=== PATIENT | female | born 1990 | race Caucasian/White ===

== ENCOUNTER 2021-05-01 05:44 | Day surgery (SDC) | payer SELFPAY ==
[2021-05-01] VITALS (20 sets, daily range): BP systolic 80–119; BP diastolic 44–82; PULSE 49–95; RESP 16–18; TEMP 36.3–36.9; O2SAT 89–100; BMI 29.8
[2021-05-01] MEDS: Lactated Ringers 1,000 ML 100 ML IV (06:41)
[2021-05-01 07:00] LABS: Internal QC Validated? YES +Cl - CLEAR BKGD; Pregnancy, Urine Negative Negative
--- NOTE | 2021-05-01 07:27 | PCM.PN.BLA ---
Progress Note see scanned in H&P and addendum
--- NOTE | 2021-05-01 07:27 | PCM.DC ---
Discharge Instructions Diet Discharge Diet: No restrictions Activity Discharge Activity: Return to Normal Activity May resume sexual activity in: 1-2 weeks (nothing in the vagina until the bleeding stops. no hot tubs, tub baths or pools until bleeding stops) Weight Bearing Status: Weight bearing as tolerated Lifting Restrictions: none Dressing / Incision Call your doctor if you observe: Fever of 101 or Higher, Numbness or Tingling, Inability to urinate, Inability to have a bowel movement, Shortness of breath, Dizziness, Swelling in the ankles, Chest pain, Increased palpitations (irregular heartbeat), Calf discomfort and Uncontrolled pain Follow Up Care Please Follow Up With: Moon Archer DO When: 1-2 weeks Test Results: Test results from this visit will be discussed in further detail at your follow-up appointment, if applicable. Discharge Plan Admission Primary Reason for Your Visit: surgery Attending Provider: Moon Archer Primary Care Provider: Zen Dumont Instructions Patient Instructions: Dilation and Curettage, Hysteroscopy Discharge Orders/Prescriptions Prescriptions: No Action multivitamin with folic acid [Thera] 1 TABLET tablet 1 tab PO BID RF: 0 sertraline 50 mg tablet 50 mg PO DAILY RF: 0 Other Ambulatory Orders: CBC-Complete Blood Cnt No Diff (Routine) Timeframe: [id number] Facility: [facility] - Location: Laboratory Ordered By: Dr. Moon Archer Referrals / Follow Up: Zen Dumont MD [Primary Care Provider] - Disposition Disposition (needs filled in before D/C Order can be placed): Home, Self Care
--- NOTE | 2021-05-01 07:30 | EMB_PTH ---
PATIENT: BETSY MORAL[place] [facility] [id number] AGE/SX: 30/F ROOM: RE05/01/[address]: Dr. Moon Archer DO : 1990 BED: DIS: 05/01/2021 SPEC #: [id number] RECD: 05/01/21 08:20 STATUS: YVONNE RERobert #: [id number] SRUTHI: 05/01/21 07:[address]: Moon Archer DEPT: SURGICAL PATHOLOGY RECD BY: Vilma Paz ENTERED: 05/01/21 08:34 SP TYPE: ENDOM BX/C ALLEY DR: Dr. Zen Dumont MD Tissues: Endometrium, NOS Procedures: Surgery Specimen Level IV HEADER OPERATION: Hysteroscopy, dilation and curettage, cervical pap smear PRE-OP DIAGNOSIS: Uterine polyp TISSUE SUBMITTED: Endometrial curettings MICROSCOPIC DIAGNOSIS Endometrium, biopsy: Polypoid fragments of proliferative endometrium with minimal disorder. AM:zahra 05/02/2021 MICROSCOPIC DESCRIPTION Slides are reviewed. GROSS DESCRIPTION Received in fixative is one container labeled with the patient's name and designated endometrial curettings. The specimen consists of multiple fragments of hemorrhagic soft tissue mixed with mucoid tissue that in aggregate measure 3 x 2.5 x 0.3 cm. The specimen is totally submitted in one cassette. / SJ:zahra 05/01/21 TC:5 CPT: 51414
[2021-05-01] MEDS: Lidocaine 1% (20 ml mdv) 20 ML Vial (07:57)
--- NOTE | 2021-05-01 08:00 | PCM.OPRPT ---
Problems Associated Problem List Diagnoses (1) DUB (dysfunctional uterine bleeding): Report of Operation Date of Procedure: 05/01/21 Pre-Operative Diagnosis: DUB, uterine polyp on pelvic US, secondary amenorrhea, PCOS, need for cervical pap smear screening Post-Operative Diagnosis: DUB, thickened endometrium, secondary amenorrhea, PCOS, need for cervical pap smear screening Surgery/Procedure Performed:: Hysteroscopy, D&C, cervical pap smear Description of Surgical Findings:: Normal appearing uterine cavity and bilateral tubal ostia visualized. Thickened endometrium. Possible flat polypoid tissue noted but difficult to assess given endometrium thickened. Normal cervical canal. Surgeon: Moon Archer viscose cellar charge hand: None Type of Anesthesia: MAC and Topical Anesth Special Medications: None Specimen's removed: Endometrial curettings Drains: None Estimated Blood Loss (mL): < 50 cc Fluids Replaced: 950 cc fluif deficit Description of Procedure: Patient was taken to the operating room where MAC anesthesia was found be adequate. She was prepped and draped in the dorsolithotomy position using yellowfin stirrups. A weighted speculum was placed in the vagina to expose the cervix. Single-tooth tenaculum was placed on the cervix. Local was injected circumferentially. The cervix was already dilated. The Symphion hysteroscope was advanced to the fundus of the uterus, the uterus was distended with normal saline. The uterine cavity was normal-appearing and bilateral tubal ostia were visualized. The endometrium was thickened. There is a possible flat polypoid lesion noted along the anterior surface of the uterus, but visualization was difficult given thickened endometrium. This possible polypoid lesion was resected using the Symphion device. The hysteroscopy was then removed. A sharp curettage was performed. Endometrial curettings were sent to pathology for review. Pictures were taken. All instruments were removed from the vagina. Bleeding was hemostatic. Vaginal sweep was performed. Instrument, needle counts were correct. Patient was taken recovery room in stable condition. Grafts/Implants Used: None Procedure Start Time: 07:42 Procedure Stop Time: 07:57 Complications None Admit VTE Documentation VTE Present on Admission: No VTE Mechan Device Prophylaxis: SCD's VTE Pharm Prophylaxis ordered?: No
[2021-05-01 09:56] LABS: Bedside Glucose 102 mg/dL (70-110)
[2021-05-05 16:54] LABS: HPV Reflexed? NOT INDICATED
== END 2021-05-01 11:21 | disposition home or self-care (01) ==
LOC: SDC 05:44 → AC 05:45
PROVIDERS: Anesthesiology; PCP Family Medicine; Referring Provider Obstetrics & Gynecology; Visit Provider Obstetrics & Gynecology
PROC: 0UB98ZZ Excision of Uterus, Via Natural or Artificial Opening Endoscopic (ICD-10-PCS; CPT 58558; principal; 2021-05-01 07:15)
DX: N84.0 Polyp of corpus uteri (principal); N93.8 Other specified abnormal uterine and vaginal bleeding; R93.89 Abnormal findings on diagnostic imaging of other specified body structures; E28.2 Polycystic ovarian syndrome; Q51.3 Bicornate uterus
CPT/HCPCS: 00952; 58558; 81025; 82962; 86850; 86900; 86901; 87426; 88175; 88305; C9803; J7120; G0145; J2405